=== PATIENT | female | born 1945 | race African-American/Black ===

== ENCOUNTER 2020-10-22 14:41 | Inpatient (IN) | payer OTHER ==
[2020-10-22] MEDS ORDERED: VANCOMYCIN 1 GM in D5W (PRE-DOCKED) 1,000 MG/250 ML IVPB ONE (15:54)
[2020-10-22] MEDS ORDERED: ACETAMINOPHEN 1000 MG/100 ML VIAL (NON FORMULARY) IVPB ONE (15:54)
[2020-10-22] MEDS ORDERED: LACTATED RINGERS SOLUTION 1000 ML INFUS.BAG IV ONE (15:54)
[2020-10-22] MEDS ORDERED: ACETAMINOPHEN INJECTION 100 ML IVPB ONE (16:43)
[2020-10-22] MEDS ORDERED: ERTAPENEM SODIUM 1 GM VIAL ONE (16:44)
[2020-10-22] MEDS ORDERED: ERTAPENEM SODIUM 1 GM in SODIUM CHLORIDE 50 ML IVPB ONE (16:45)
[2020-10-22 16:54] LABS: VENOUS BASE EXCESS 2.8 mmol/L (-2-2); VENOUS O2 SATURATION 75.6 % (70-80); VENOUS PCO2 46.8 mmHg (38-52); VENOUS PH 7.403 (7.310-7.410)
[2020-10-22 17:03] LABS: INR 1.27 (0.83-1.09); PROTHROMBIN TIME (PATIENT) 15.5 SEC (9.7-13.0)
[2020-10-22 17:09] LABS: BASO % 0.4 % (0-2.0); EOS % 0.1 % (0-4.5); HEMOGLOBIN 13.8 GM/dL (10.7-15.3); LYMPH % 5.2 % (8-40); MCH 33.1 pg (25.7-33.7); MCHC 33.6 g/dl (32.0-36.0); MEAN CELL VOLUME 98.3 fl (80-96); MEAN PLT VOLUME 9.2 fl (7.5-11.1); MONO % 8.9 % (3.8-10.2); NEUT % 85.4 % (42.8-82.8); PLATELET COUNT 140 K/MM3 (134-434); RBC 4.17 M/mm3 (3.60-5.2); RDW 12.9 % (11.6-15.6); WHITE BLOOD COUNT 12.8 K/mm3 (4.0-10.0)
[2020-10-22 17:31] LABS: POTASSIUM 3.9 mmol/L (3.5-5.1); SODIUM 136 mmol/L (136-145)
[2020-10-22 17:33] LABS: BLOOD UREA NITROGEN 17.2 mg/dL (7-18); CALCIUM 8.6 mg/dL (8.5-10.1)
[2020-10-22 17:34] LABS: ALBUMIN 2.8 g/dl (3.4-5.0); CO2 28 mmol/L (21-32); GLUCOSE,RANDOM 170 mg/dL (74-106)
[2020-10-22 17:35] LABS: ANION GAP 8 MMOL/L (8-16); BILIRUBIN,DIRECT 0.8 mg/dL (0.0-0.2); CHLORIDE 100 mmol/L (98-107)
[2020-10-22 17:37] LABS: SGOT/AST 29 U/L (15-37); SGPT/ALT 44 U/L (13-61)
[2020-10-22 17:38] LABS: BILIRUBIN,TOTAL 1.7 mg/dL (0.2-1); TOT PROT 6.1 g/dl (6.4-8.2)
[2020-10-22 17:39] LABS: ALK PHOS 81 U/L (45-117)
[2020-10-22 17:50] LABS: EPI CELLS 31 /uL (0-25.1); HYALINE CASTS 8 /uL (0-3.1); PH,URINE 5.5 (5.0-8.0); URINE APPEARANCE CLOUDY; URINE BACTERIA 2387 /uL (0-1359); URINE BILIRUBIN 1+ (NEGATIVE); URINE COLOR DK YELLOW; URINE GLUCOSE (UA) NEGATIVE (NEGATIVE); URINE KETONE TRACE (NEGATIVE); URINE LEUK ESTERASE 2+ (NEGATIVE); URINE NITRITE POSITIVE (NEGATIVE); URINE PROTEIN 2+ (NEGATIVE); URINE RBC 246 /uL (0-23.9); URINE WBC 544 /uL (0-25.8)
[2020-10-22] MEDS ORDERED: DEXAMETHASONE SOD PHOSPHATE 4 MG/1 ML VIAL IVPUSH ONE (17:56)
[2020-10-22] MEDS ORDERED: DEXAMETHASONE SOD PHOSPHATE 4 MG/1 ML VIAL ONE (18:55)
[2020-10-22] MEDS ORDERED: ACETAMINOPHEN 325 MG TABLET (FP) ONE (20:06)
[2020-10-22] MEDS: ACETAMINOPHEN 325 MG TABLET (FP) PO PRN (20:26)
[2020-10-22] MEDS ORDERED: SENNOSIDES 8.6MG TABLET (FP) PO PRN (20:59)
[2020-10-22] MEDS ORDERED: ONDANSETRON 4 MG/2 ML VIAL IVPUSH PRN (21:05)
[2020-10-22] MEDS: LACTATED RINGERS SOLUTION 1,000 ML IV SCH (21:10)
[2020-10-22] MEDS ORDERED: ALBUTEROL SO4 HFA INHALER IH PRN (21:15)
[2020-10-22] MEDS ORDERED: ASCORBIC ACID 500 MG TABLET (FP) ONE (22:03)
[2020-10-22] MEDS: ASCORBIC ACID 500 MG TABLET (FP) PO SCH (22:07)
[2020-10-22] MEDS: INSULIN SLIDING SCALE (NOVOLOG) 1 VIAL SQ SCH (22:07)
[2020-10-23] MEDS: LACTATED RINGERS SOLUTION 1,000 ML IV SCH ×2 (00:54→21:58)
[2020-10-23] MEDS: INSULIN SLIDING SCALE (NOVOLOG) 1 VIAL SQ SCH ×4 (06:07→21:59)
[2020-10-23 09:26] LABS: BASO % 0.4 % (0-2.0); HEMOGLOBIN 13.1 GM/dL (10.7-15.3); LYMPH % 5.8 % (8-40); MCH 33.3 pg (25.7-33.7); MCHC 33.5 g/dl (32.0-36.0); MEAN CELL VOLUME 99.6 fl (80-96); MEAN PLT VOLUME 9.5 fl (7.5-11.1); MONO % 5.2 % (3.8-10.2); NEUT % 88.6 % (42.8-82.8); PLATELET COUNT 132 K/MM3 (134-434); RBC 3.92 M/mm3 (3.60-5.2); RDW 12.9 % (11.6-15.6); WHITE BLOOD COUNT 9.4 K/mm3 (4.0-10.0)
[2020-10-23] MEDS ORDERED: ERTAPENEM SODIUM 1 GM VIAL ONE (09:39)
[2020-10-23] MEDS ORDERED: SODIUM CHLORIDE 50 ML IVPB ONE (09:40)
[2020-10-23 09:42] LABS: POTASSIUM 4.3 mmol/L (3.5-5.1)
[2020-10-23 09:45] LABS: ALBUMIN 2.4 g/dl (3.4-5.0); BLOOD UREA NITROGEN 19.4 mg/dL (7-18); CALCIUM 8.5 mg/dL (8.5-10.1); MAGNESIUM 2.4 mg/dL (1.8-2.4)
[2020-10-23 09:48] LABS: CREATININE 0.7 mg/dL (0.55-1.3); PHOSPHOROUS 3.3 mg/dL (2.5-4.9)
[2020-10-23 09:50] LABS: BILIRUBIN,TOTAL 0.6 mg/dL (0.2-1); TOT PROT 5.4 g/dl (6.4-8.2)
[2020-10-23] MEDS ORDERED: FAMOTIDINE 20 MG TABLET PO SCH (10:00)
[2020-10-23] MEDS: CHOLECALCIFEROL (VIT D3) 1,000 UNIT (25 MCG) TABLET PO SCH ×2 (11:25→12:03)
[2020-10-23] MEDS: ZINC SULFATE 220 MG CAPSULE (FP) PO SCH ×2 (11:26→12:03)
[2020-10-23] MEDS: ASCORBIC ACID 500 MG TABLET (FP) PO SCH ×2 (11:26→12:03)
[2020-10-23] MEDS: ENOXAPARIN NA (PORCINE) 40 MG/0.4 ML DISP.SYRIN SQ SCH ×2 (11:26→12:03)
[2020-10-23] MEDS: DEXAMETHASONE SOD PHOSPHATE 4 MG/1 ML VIAL IVPUSH SCH ×2 (11:26→12:38)
[2020-10-23] MEDS: ERTAPENEM SODIUM 1 GM in SODIUM CHLORIDE 50 ML IVPB SCH ×2 (11:30→12:39)
[2020-10-23] MEDS ORDERED: PT OWN MED DRAWER 7, Y5N ONE ×2 (12:14→19:40)
[2020-10-23] MEDS ORDERED: ALBUTEROL SO4 2.5/IPRATROPIUM 0.5 INH SOL 3 ML VIAL.NEB. NEB ONE (14:00)
[2020-10-24 08:31] LABS: BASO % 0.3 % (0-2.0); HEMATOCRIT 38.2 % (32.4-45.2); HEMOGLOBIN 12.5 GM/dL (10.7-15.3); LYMPH % 7.9 % (8-40); MCH 32.5 pg (25.7-33.7); MCHC 32.6 g/dl (32.0-36.0); MEAN CELL VOLUME 99.7 fl (80-96); MEAN PLT VOLUME 9.5 fl (7.5-11.1); NEUT % 84.8 % (42.8-82.8); PLATELET COUNT 178 K/MM3 (134-434); RBC 3.83 M/mm3 (3.60-5.2); RDW 12.7 % (11.6-15.6); WHITE BLOOD COUNT 14.5 K/mm3 (4.0-10.0)
[2020-10-24 08:36] LABS: POTASSIUM 4.2 mmol/L (3.5-5.1)
[2020-10-24 08:38] LABS: CALCIUM 8.9 mg/dL (8.5-10.1)
[2020-10-24 08:39] LABS: ALBUMIN 2.3 g/dl (3.4-5.0); BLOOD UREA NITROGEN 23.4 mg/dL (7-18); MAGNESIUM 2.3 mg/dL (1.8-2.4)
[2020-10-24 08:42] LABS: CREATININE 0.7 mg/dL (0.55-1.3)
[2020-10-24 08:43] LABS: BILIRUBIN,TOTAL 0.7 mg/dL (0.2-1)
[2020-10-24] MEDS: INSULIN SLIDING SCALE (NOVOLOG) 1 VIAL SQ SCH ×4 (09:38→21:57)
[2020-10-24] MEDS ORDERED: SODIUM CHLORIDE 50 ML IVPB ONE (09:51)
[2020-10-24] MEDS ORDERED: ERTAPENEM SODIUM 1 GM VIAL ONE (09:51)
[2020-10-24] MEDS: ENOXAPARIN NA (PORCINE) 40 MG/0.4 ML DISP.SYRIN SQ SCH (09:52)
[2020-10-24] MEDS: ERTAPENEM SODIUM 1 GM in SODIUM CHLORIDE 50 ML IVPB SCH (09:53)
[2020-10-24] MEDS ORDERED: ALBUTEROL SO4 2.5/IPRATROPIUM 0.5 INH SOL 3 ML VIAL.NEB. NEB PRN (16:02)
[2020-10-24] MEDS ORDERED: FAMOTIDINE 20 MG TABLET PO ONE (16:03)
[2020-10-24] MEDS ORDERED: PATIENT'S OWN MEDICATION (NON-FORMULARY) (Lubiprostone [Amitiza] 24 MCG Capsule) PO SCH (16:15)
[2020-10-25] MEDS: INSULIN SLIDING SCALE (NOVOLOG) 1 VIAL SQ SCH ×4 (06:09→21:18)
[2020-10-25 07:46] LABS: BASO % 0.5 % (0-2.0); EOS % 1.2 % (0-4.5); HEMATOCRIT 37.1 % (32.4-45.2); HEMOGLOBIN 12.6 GM/dL (10.7-15.3); LYMPH % 12.4 % (8-40); MCH 33.2 pg (25.7-33.7); MCHC 33.9 g/dl (32.0-36.0); MEAN CELL VOLUME 97.9 fl (80-96); MEAN PLT VOLUME 9.1 fl (7.5-11.1); MONO % 11.2 % (3.8-10.2); NEUT % 74.7 % (42.8-82.8); PLATELET COUNT 169 K/MM3 (134-434); RBC 3.78 M/mm3 (3.60-5.2); RDW 12.9 % (11.6-15.6); WHITE BLOOD COUNT 10.3 K/mm3 (4.0-10.0)
[2020-10-25 07:55] LABS: CALCIUM 8.5 mg/dL (8.5-10.1)
[2020-10-25 07:56] LABS: ALBUMIN 2.2 g/dl (3.4-5.0); BLOOD UREA NITROGEN 21.1 mg/dL (7-18); MAGNESIUM 2.1 mg/dL (1.8-2.4)
[2020-10-25 07:59] LABS: CREATININE 0.9 mg/dL (0.55-1.3)
[2020-10-25 08:00] LABS: BILIRUBIN,TOTAL 0.4 mg/dL (0.2-1); TOT PROT 4.9 g/dl (6.4-8.2)
[2020-10-25] MEDS ORDERED: ERTAPENEM SODIUM 1 GM VIAL ONE ×2 (09:15→10:37)
[2020-10-25] MEDS ORDERED: SODIUM CHLORIDE 50 ML IVPB ONE ×2 (09:16→10:38)
[2020-10-25 09:32] LABS: ANISOCYTOSIS 0; HELMET CELLS 0; HOWELL-JOLLY BODIES 0; MACROCYTOSIS 0; OVALOCYTE 0; PLATELET ESTIMATE NORMAL; ROULEAU 0; SICKELED CELLS 0; TARGET CELLS 0; TEAR DROP CELLS 0; TOXIC GRANULATION 0
[2020-10-25] MEDS: MONTELUKAST NA 10 MG TABLET PO SCH (09:37)
[2020-10-25] MEDS: ENOXAPARIN NA (PORCINE) 40 MG/0.4 ML DISP.SYRIN SQ SCH (09:42)
[2020-10-25] MEDS: ERTAPENEM SODIUM 1 GM in SODIUM CHLORIDE 50 ML IVPB SCH (10:53)
[2020-10-25] MEDS ORDERED: PT OWN MED DRAWER 7, Y5N ONE (16:23)
[2020-10-26] MEDS: DOCUSATE SODIUM 100 MG CAPSULE (FP) PO PRN (06:02)
[2020-10-26] MEDS: INSULIN SLIDING SCALE (NOVOLOG) 1 VIAL SQ SCH ×4 (06:02→21:06)
[2020-10-26 08:07] LABS: IGA IMMUNOGLOBULIN 49 mg/dL (64-422); IGG QN IMMUNOGLOBULIN 364 mg/dL (586-1602); IGM QN SERUM 53 mg/dL (26-217)
[2020-10-26] MEDS ORDERED: SODIUM CHLORIDE 50 ML IVPB ONE (10:09)
[2020-10-26] MEDS ORDERED: ERTAPENEM SODIUM 1 GM VIAL ONE (10:09)
[2020-10-26] MEDS: ERTAPENEM SODIUM 1 GM in SODIUM CHLORIDE 50 ML IVPB SCH (10:25)
[2020-10-26] MEDS: MONTELUKAST NA 10 MG TABLET PO SCH (10:26)
[2020-10-26] MEDS: PSYLLIUM 5.85 GM PACKET PO SCH (10:26)
[2020-10-26] MEDS: POLYETHYLENE GLYCOL 3350 119 GM BTL PO SCH (21:06)
[2020-10-26] MEDS: SENNOSIDES 8.6MG TABLET (FP) PO SCH (21:06)
[2020-10-27] MEDS: INSULIN SLIDING SCALE (NOVOLOG) 1 VIAL SQ SCH ×4 (06:30→21:40)
[2020-10-27 08:23] LABS: BASO % 0.6 % (0-2.0); EOS % 1.5 % (0-4.5); HEMATOCRIT 36.9 % (32.4-45.2); HEMOGLOBIN 12.2 GM/dL (10.7-15.3); LYMPH % 15.7 % (8-40); MCHC 33.1 g/dl (32.0-36.0); MEAN CELL VOLUME 99.8 fl (80-96); MEAN PLT VOLUME 8.8 fl (7.5-11.1); MONO % 5.7 % (3.8-10.2); NEUT % 76.5 % (42.8-82.8); PLATELET COUNT 207 K/MM3 (134-434); RDW 13.1 % (11.6-15.6); WHITE BLOOD COUNT 10.7 K/mm3 (4.0-10.0)
[2020-10-27 08:54] LABS: POTASSIUM 4.1 mmol/L (3.5-5.1)
[2020-10-27 09:01] LABS: ALBUMIN 2.3 g/dl (3.4-5.0); BLOOD UREA NITROGEN 15.1 mg/dL (7-18)
[2020-10-27 09:04] LABS: CREATININE 0.7 mg/dL (0.55-1.3)
[2020-10-27 09:05] LABS: BILIRUBIN,TOTAL 0.5 mg/dL (0.2-1); TOT PROT 5.1 g/dl (6.4-8.2)
[2020-10-27] MEDS ORDERED: ERTAPENEM SODIUM 1 GM VIAL ONE (09:10)
[2020-10-27 09:11] LABS: CHOLESTEROL 209 mg/dL (50-200); TRIGLYCERIDES 275 mg/dL (0-150)
[2020-10-27] MEDS ORDERED: SODIUM CHLORIDE 50 ML IVPB ONE (09:11)
[2020-10-27 09:12] LABS: LDL CHOLESTEROL (ONLY SJRH) 130 mg/dL (5-100)
[2020-10-27 09:14] LABS: HDL CHOLESTEROL 33 mg/dL (40-60)
[2020-10-27 09:17] LABS: ANISOCYTOSIS 1+; MACROCYTOSIS 1+; PLATELET ESTIMATE NORMAL
[2020-10-27] MEDS: PSYLLIUM 5.85 GM PACKET PO SCH (10:13)
[2020-10-27] MEDS: ERTAPENEM SODIUM 1 GM in SODIUM CHLORIDE 50 ML IVPB SCH (10:13)
[2020-10-27] MEDS: MONTELUKAST NA 10 MG TABLET PO SCH (10:14)
[2020-10-27] MEDS: POLYETHYLENE GLYCOL 3350 119 GM BTL PO SCH ×2 (10:23→21:48)
[2020-10-27] MEDS: SENNOSIDES 8.6MG TABLET (FP) PO SCH (21:40)
[2020-10-27] MEDS: DOCUSATE SODIUM 100 MG CAPSULE (FP) PO PRN (21:48)
[2020-10-28] MEDS: INSULIN SLIDING SCALE (NOVOLOG) 1 VIAL SQ SCH ×4 (06:22→21:25)
[2020-10-28] MEDS ORDERED: SODIUM CHLORIDE 50 ML IVPB ONE (10:04)
[2020-10-28] MEDS ORDERED: ERTAPENEM SODIUM 1 GM VIAL ONE (10:04)
[2020-10-28] MEDS: ERTAPENEM SODIUM 1 GM in SODIUM CHLORIDE 50 ML IVPB SCH (10:44)
[2020-10-28] MEDS: MONTELUKAST NA 10 MG TABLET PO SCH (10:45)
[2020-10-28] MEDS: PSYLLIUM 5.85 GM PACKET PO SCH (10:45)
[2020-10-28] MEDS: POLYETHYLENE GLYCOL 3350 119 GM BTL PO SCH ×2 (10:45→21:14)
[2020-10-28] MEDS ORDERED: INSULIN (NOVOLOG) ASPART 100 UNITS/ML 10ML VIAL ONE (21:10)
[2020-10-28] MEDS: SENNOSIDES 8.6MG TABLET (FP) PO SCH (21:14)
[2020-10-28] MEDS: ACETAMINOPHEN 325 MG TABLET (FP) PO PRN (21:14)
[2020-10-29] MEDS: INSULIN SLIDING SCALE (NOVOLOG) 1 VIAL SQ SCH ×3 (06:22→21:51)
[2020-10-29 06:46] VITALS: BMI 30.7
[2020-10-29] MEDS ORDERED: INSULIN (LEVEMIR) 100 UNITS/ML UNITS SQ ONE (07:24)
[2020-10-29] MEDS ORDERED: INSULIN (NOVOLOG) ASPART 100 UNITS/ML 10ML VIAL ONE (07:24)
[2020-10-29] MEDS: MONTELUKAST NA 10 MG TABLET PO SCH (10:41)
[2020-10-29] MEDS: POLYETHYLENE GLYCOL 3350 119 GM BTL PO SCH ×2 (10:41→21:50)
[2020-10-29] MEDS: PSYLLIUM 5.85 GM PACKET PO SCH (10:41)
[2020-10-29] MEDS ORDERED: LORazepam 2 MG/ML SDV VIAL IM ONE (15:00)
[2020-10-29] MEDS: SULFAMETHOXAZOLE/TRIMETHOPRIM 800MG/160MG D.S. TABLET PO SCH ×2 (15:08→21:50)
[2020-10-29] MEDS: SENNOSIDES 8.6MG TABLET (FP) PO SCH (21:51)
[2020-10-30] MEDS: INSULIN SLIDING SCALE (NOVOLOG) 1 VIAL SQ SCH ×2 (06:01→12:22)
[2020-10-30] MEDS: SULFAMETHOXAZOLE/TRIMETHOPRIM 800MG/160MG D.S. TABLET PO SCH (12:20)
[2020-10-30] MEDS: POLYETHYLENE GLYCOL 3350 119 GM BTL PO SCH (12:21)
[2020-10-30] MEDS: PSYLLIUM 5.85 GM PACKET PO SCH (12:21)
[2020-10-30] MEDS: MONTELUKAST NA 10 MG TABLET PO SCH (12:21)
[2020-10-30 13:25] VITALS: BP 143/66; PULSE 96; TEMP 99
== END 2020-10-30 16:16 | disposition home or self-care (01) | DRG 872 ==
LOC: JER 14:41 → JERBED 16:50 → J7W 22:49
PROVIDERS: ADMIT Hospitalist
DX: A41.50 Gram-negative sepsis, unspecified (principal); C91.10 Chronic lymphocytic leukemia of B-cell type not having achieved remission; N39.0 Urinary tract infection, site not specified; E11.9 Type 2 diabetes mellitus without complications; E78.5 Hyperlipidemia, unspecified; J45.909 Unspecified asthma, uncomplicated; Z85.528 Personal history of other malignant neoplasm of kidney; Z88.0 Allergy status to penicillin; K59.00 Constipation, unspecified; Z79.84 Long term (current) use of oral hypoglycemic drugs; R09.02 Hypoxemia; B96.20 Unspecified Escherichia coli [E. coli] as the cause of diseases classified elsewhere; K59.09 Other constipation
CPT/HCPCS: 36415; 71045-TC-FY; 72131-TC; 72192-TC; 76775-TC; 76856-TC; 80053; 80061; 81003; 82248; 82550; 82728; 82784; 82803; 82962; 83036; 83605; 83615; 83721; 83735; 84100; 84443; 84484; 85025; 85379; 85610; 85730; 86140; 86850; 86900; 86901; 87040; 87086; 87186; 87804; 93005; 93010; 94640; 97116-GP; 97161-GP; 99285-25; C9803; J0131; U0003